=== PATIENT | male | born 1935 | race Caucasian/White ===

== ENCOUNTER → 2020-07-29 09:39 | Outpatient (CLI) | payer MEDICARE, SELFPAY ==
--- NOTE | 2020-07-29 09:45 | DI.MRI.S_ITS ---
PROCEDURE: MR ELBOW LT W CON INDICATIONS: Strain of muscle, fascia and tendon of triceps, le TECHNIQUE: Noncontrast coronal proton density fast spin echo and T2 fast spin echo with fat saturation, axial and sagittal T1 spin echo and T2 fast spin echo with fat saturation through the elbow. COMPARISON: None. FINDINGS: Image quality: Diagnostic. Patient is unable to complete the study. No sagittal sequence was obtained. Lateral structures: The lateral ulnar collateral ligament and radial collateral ligament both appear intact. The overlying common extensor tendon also appears normal. Medial structures: The ulnar collateral ligament appears thickened with heterogeneous intrasubstance T2 hyperintense signal. The overlying common flexor tendon appears attenuated with intrasubstance T2 hyperintense signal at its medial epicondylar insertion. The ulnar nerve appears normal in size and signal within the cubital tunnel. Anterior structures: The biceps and brachialis tendons both appear intact as they insert onto the proximal radius and ulna, respectively. No bicipitoradial bursal fluid. The median and radial neurovascular bundles appear normal; no focal muscle atrophy to suggest nerve impingement. Posterior structures: Moderate grade partial-thickness involving medial and central portion of distal triceps tendon at its insertion on olecranon is seen with moderate amount of fluid surrounding torn and retracted tendon and muscle fibers. No olecranon bursal fluid. 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 No marrow edema. No fracture or dislocation. Subcortical cystic areas are noted involving capitellum and adjacent radial head, tiny osteochondral injury involving capitellum cannot be excluded. There is small amount of joint effusion. IMPRESSION: 1. Limited study. No sagittal sequence was obtained. 2. Suggestion of moderate grade partial-thickness tear involving medial and midportion of distal triceps tendons and muscles with proximal retraction of muscle and tendon fibers with moderate amount of surrounding fluid and soft tissue edema. 3. Suggestion of medial epicondylitis with sprain/low-grade partial-thickness tear involving medial collateral ligaments and tendinosis and low to moderate grade partial-thickness tear involving common flexor tendon origin. 4. 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 Small amount of joint fluid. Dictated by: Rene Solis M.D. on 07/29/2020 at 11:33 Approved by: Rene Solis M.D. on 07/29/2020 at 11:39
== END ==
PROVIDERS: Referring Provider Orthopaedic Surgery; Visit Provider Orthopaedic Surgery
DX: S46.312A Strain of muscle, fascia and tendon of triceps, left arm, initial encounter (principal); X58.XXXA Exposure to other specified factors, initial encounter
CPT/HCPCS: 73221